=== PATIENT | female | born 1945 | race Caucasian/White ===

== ENCOUNTER → 2017-02-11 | Outpatient (CLI) | payer MEDICARE, BC | END | disposition home or self-care (01) | LOC: PCVCCLINIC 15:09 | PROVIDERS: ATTEND Internal Medicine Cardiovascular Disease | DX: I48.0 Paroxysmal atrial fibrillation (principal); R00.2 Palpitations; F41.9 Anxiety disorder, unspecified; I49.3 Ventricular premature depolarization; E05.90 Thyrotoxicosis, unspecified without thyrotoxic crisis or storm; E78.5 Hyperlipidemia, unspecified | CPT/HCPCS: 93005; G0463 ==

== ENCOUNTER → 2017-08-11 | Outpatient (CLI) | payer MEDICARE, BC ==
--- NOTE | 2017-08-11 16:05 | PCVCIMAG ---
APPROVED REPORT Study performed: 08/11/2017 13:15:20 EXAM: Comprehensive 2D, Doppler, and color-flow Echocardiogram Patient Location: Echo lab Status: routine BSA: 1.80 HR: 69 bpmBP: 108/70 mmHg Rhythm: NSR Other Information Study Quality: Technically Limited Indications Atrial Fibrillation Hypertension/HDD Palpitations, PVC's. 2D Dimensions IVSd: 8.23 (7-11mm)LVOT Diam: 18.67 (18-24mm) LVDd: 35.83 mm PWd: 8.90 (7-11mm)Ascending Ao: 30.05 (22-36mm) LVDs: 32.06 (25-40mm) Left Atrium: 32.88 (27-40mm) Aortic Root: 25.05 mm LV Single Plane 4CH: 53.68 % Felix's LVEF: 23.56 % Volumes Left Atrial Volume (Systole) Single Plane 4CH: 40.45 mLSingle Plane 2CH: 30.18 mL LA ESV Index: 20.00 mL/m2 Aortic Valve AoV Peak Froilan.: 1.21 m/s AO Peak Gr.: 5.90 mmHgLVOT Max P.46 mmHg LVOT Max V: 1.06 m/s DEBBIE Vmax: 2.38 cm2 Mitral Valve E/A Ratio: 0.9 MV Decel. Time: 245.16 ms MV E Max Froilan.: 0.69 m/s MV A Froilan.: 0.79 m/s IVRT: 152.25 ms Pulmonary Valve PV Peak Gr.: 2.03 mmHg Tricuspid Valve TR Peak Froilan.: 2.54 m/s TR Peak Gr.: 25.73 mmHg Left Ventricle The left ventricle is normal size. There is normal LV segmental wall motion. There is normal left ventricular wall thickness. Left ventricular systolic function is normal. The left ventricular ejection fraction is within the normal range. LVEF is 55-60%. The left ventricular diastolic function is normal. Right Ventricle The right ventricle is normal size. The right ventricular systolic function is normal. Atria The left atrium size is normal. The right atrium size is normal. Aortic Valve The aortic valve is normal in structure. No aortic regurgitation is present. There is no aortic valvular stenosis. Mitral Valve The mitral valve is normal in structure. There is no mitral valve regurgitation noted. No evidence of mitral valve stenosis. Tricuspid Valve The tricuspid valve is normal in structure. Mild tricuspid regurgitation. Pulmonary artery pressure is 33mmhg. Pulmonic Valve The pulmonary valve is normal in structure. There is no pulmonic valvular regurgitation. Great Vessels The aortic root is normal in size. IVC is normal in size and collapses with >50% inspiration Pericardium There is no pericardial effusion. <Conclusion> The left ventricle is normal size. LVEF is 55-60%. The left ventricular diastolic function is normal. The right ventricle is normal size. The left atrium size is normal. The aortic valve is normal in structure. There is no aortic valvular stenosis. There is no mitral valve regurgitation noted. Mild tricuspid regurgitation. Pulmonary artery pressure is 33mmhg. There is no pericardial effusion.
== END | disposition home or self-care (01) ==
LOC: PCVCIMAG 13:05
PROVIDERS: ATTEND Internal Medicine Cardiovascular Disease
DX: I07.1 Rheumatic tricuspid insufficiency (principal); I48.0 Paroxysmal atrial fibrillation; I10 Essential (primary) hypertension; E78.00 Pure hypercholesterolemia, unspecified; I49.3 Ventricular premature depolarization; E03.9 Hypothyroidism, unspecified; F41.9 Anxiety disorder, unspecified; Z90.49 Acquired absence of other specified parts of digestive tract; Z79.82 Long term (current) use of aspirin; Z79.899 Other long term (current) drug therapy; Z88.0 Allergy status to penicillin; Z88.8 Allergy status to other drugs, medicaments and biological substances
CPT/HCPCS: 80061; 93005; 93306; G0463

== ENCOUNTER → 2018-05-15 | Outpatient (CLI) | payer MEDICARE, BC | END | disposition home or self-care (01) | LOC: PCVCCLINIC 10:53 | DX: I48.0 Paroxysmal atrial fibrillation (principal); I10 Essential (primary) hypertension; E78.00 Pure hypercholesterolemia, unspecified; Z88.8 Allergy status to other drugs, medicaments and biological substances; Z79.82 Long term (current) use of aspirin; Z79.899 Other long term (current) drug therapy | CPT/HCPCS: 80061; 93005; G0463 ==

== ENCOUNTER → 2018-12-11 | Outpatient (CLI) | payer MEDICARE, BC | END | disposition home or self-care (01) | LOC: PCVCCLINIC 15:22 | PROVIDERS: ATTEND Internal Medicine Cardiovascular Disease | DX: I48.0 Paroxysmal atrial fibrillation (principal); E78.00 Pure hypercholesterolemia, unspecified; I10 Essential (primary) hypertension; E03.8 Other specified hypothyroidism; E78.5 Hyperlipidemia, unspecified; E03.9 Hypothyroidism, unspecified; Z79.82 Long term (current) use of aspirin | CPT/HCPCS: 36415; 80061; 93005; G0463 ==

== ENCOUNTER → 2019-08-24 | Outpatient (CLI) | payer MEDICARE, BC ==
--- NOTE | 2019-08-24 15:59 | PCVCIMAG ---
APPROVED REPORT Study performed: 08/24/2019 13:44:20 EXAM: Comprehensive 2D, Doppler, and color-flow Echocardiogram Patient Location: Echo lab Room #: 2Status: routine BSA: 1.80 HR: 77 bpmBP: 112/70 mmHg Rhythm: NSR Other Information Study Quality: Adequate Risk Factors: Cardiac Risk Factors: HTN, Hyperlipidemia Indications Atrial Fibrillation 2D Dimensions IVSd: 9.60 (7-11mm)LVOT Diam: 20.00 (18-24mm) LVDd: 44.26 mm PWd: 8.66 (7-11mm)Ascending Ao: 33.14 (22-36mm) LVDs: 28.81 (25-40mm) Left Atrium: 35.53 (27-40mm) Aortic Root: 24.49 mm LV Single Plane 4CH: 65.46 % LV Single Plane 2CH: 56.69 % Biplane EF: 65.2 % Volumes Left Atrial Volume (Systole) Single Plane 4CH: 45.19 mLSingle Plane 2CH: 29.49 mL LA ESV Index: 21.00 mL/m2 Aortic Valve AoV Peak Froilan.: 1.30 m/s AO Peak Gr.: 6.80 mmHgLVOT Max P.59 mmHg LVOT Max V: 0.95 m/s DEBBIE Vmax: 2.21 cm2 Mitral Valve E/A Ratio: 1.0 MV Decel. Time: 241.91 ms MV E Max Froilan.: 0.92 m/s MV A Froilan.: 0.92 m/s IVRT: 86.51 ms TDI E/Lateral E': 13.14E/Medial E': 15.33 Medial E' Froilan.: 0.06 m/s Lateral E' Froilan.: 0.07 m/s Pulmonary Valve PV Peak Froilan.: 0.91 m/sPV Peak Gr.: 3.29 mmHg Tricuspid Valve TR Peak Froilan.: 2.60 m/sRAP Estimate: 7.00 mmHg TR Peak Gr.: 27.00 mmHg PA Pressure: 34.00 mmHg Left Ventricle The left ventricle is normal size. There is normal LV segmental wall motion. There is normal left ventricular wall thickness. Left ventricular systolic function is normal. The left ventricular ejection fraction is within the normal range. LVEF is 60-65%. Moderate diastolic dysfunction is present (pseudonormal filling). Right Ventricle The right ventricle is normal size. The right ventricular systolic function is normal. Atria The left atrium size is normal. The right atrium size is normal. Aortic Valve The aortic valve is normal in structure. No aortic regurgitation is present. There is no aortic valvular stenosis. Mitral Valve The mitral valve is normal in structure. Trace mitral regurgitation. No evidence of mitral valve stenosis. Tricuspid Valve The tricuspid valve is normal in structure. Mild tricuspid regurgitation. Pulmonary artery pressure is 34 mmHg. Pulmonic Valve The pulmonary valve is normal in structure. There is no pulmonic valvular regurgitation. Great Vessels The aortic root is normal in size. The ascending aorta is normal in size. IVC is normal in size and collapses >50% with inspiration. Pericardium There is no pericardial effusion. <Conclusion> The left ventricle is normal size. LVEF is 60-65%. Moderate diastolic dysfunction is present (pseudonormal filling). The right ventricular systolic function is normal. The left atrium size is normal. The aortic valve is normal in structure. Trace mitral regurgitation. Mild tricuspid regurgitation. Pulmonary artery pressure is 34 mmHg. The aortic root is normal in size. There is no pericardial effusion.
== END | disposition home or self-care (01) ==
LOC: PCVCIMAG 13:41
PROVIDERS: ATTEND Internal Medicine Cardiovascular Disease
DX: I07.1 Rheumatic tricuspid insufficiency (principal); I48.0 Paroxysmal atrial fibrillation; I10 Essential (primary) hypertension; E78.00 Pure hypercholesterolemia, unspecified; I49.3 Ventricular premature depolarization; E78.5 Hyperlipidemia, unspecified; E03.9 Hypothyroidism, unspecified; Z90.49 Acquired absence of other specified parts of digestive tract; Z90.89 Acquired absence of other organs; Z72.89 Other problems related to lifestyle; Z88.0 Allergy status to penicillin; Z88.1 Allergy status to other antibiotic agents; Z88.8 Allergy status to other drugs, medicaments and biological substances; Z79.82 Long term (current) use of aspirin; Z79.899 Other long term (current) drug therapy
CPT/HCPCS: 93306

== ENCOUNTER → 2019-09-10 | Outpatient (CLI) | payer MEDICARE, BC ==
--- NOTE | 2019-09-10 12:08 | PCVCIMAG ---
APPROVED REPORT Study performed: 09/10/2019 11:05:31 Exam: Stress Echocardiogram Indication: elevated coronary calcium score, parox a fib, pvcs Patient Location: Echo lab Stress Nurse: Lashell Sam RN Status: routine Ht: 5 ft 5 in HR: 77 bpm BP: 118/78 mmHg Rhythm: NSR Procedure The patient underwent an Exercise Stress Test using the Natalio Protocol. Blood pressure, heart rate, and EKG were monitored. An Echocardiogram was performed by broadcast maintenance technician in four stages in quad fashion. At peak stress, four selected images were obtained and placed side by side with resting images for comparison. Stress Test Details Stress Test: Exercise stress testing was performed using a Natalio protocol. HR Resting HR: 77 bpmMax Heart Rate (APMHR): 147 bpm Max HR Achieved: 141 bpmTarget HR (85% APMHR): 124 bpm % of APMHR: 95 Recovery HR: 92 bpm HR response to stress: Normal HR response to stress BP Resting BP: 118/78 mmHg Max BP: 160/62 mmHg Recovery BP: 142/68 mmHg BP response to stress: Normal blood pressure response to stress. ECG Resting ECG: Sinus Rhythm Stress ECG: Sinus Rhythm ST Change: Normal Arrhythmia: PVCs Recovery ECG: Sinus Rhythm Recovery ST Change: Normal Recovery Arrhythmia: PVCs Clinical Reason for Termination: Maximal effort Stress Symptoms: Dyspnea Exercise duration: 6 min sec Highest Stage Achieved: Stage 2: 2.5 mph at 12% grade. Exercise capacity: 7 METs Overall Exercise Capacity for Age: Normal Scale: Sedentary Angina Score: None Pre-Stress Echo The resting Echocardiogram showed normal left ventricular contractility with an estimated Ejection Fraction of about 55%. The resting echocardiogram demonstrated normal wall motion in all wall segments. Post-Stress Echo The stress Echocardiogram showed normal left ventricular contractility with an estimated Ejection Fraction of about 65%. Compared to rest, there were no stress-induced wall motion abnormalities. Clinical No clinical or ECG evidence for ischemia. Conclusion Clinical Response: Non-ischemic Exercise Capacity: Average Stress ECG Response: Non-ischemic Stress Echo Images: Non-ischemic The left ventricle is normal in size and wall thickness in both the rest and stress images. Other Information Study Quality: Adequate <Conclusion> The left ventricle is normal in size and wall thickness in both the rest and stress images.
== END | disposition home or self-care (01) ==
LOC: PCVCIMAG 10:53
PROVIDERS: ATTEND Internal Medicine Cardiovascular Disease
DX: I48.0 Paroxysmal atrial fibrillation (principal); R93.1 Abnormal findings on diagnostic imaging of heart and coronary circulation; I10 Essential (primary) hypertension; I49.3 Ventricular premature depolarization; R00.2 Palpitations; E78.00 Pure hypercholesterolemia, unspecified
CPT/HCPCS: 93325; 93351